=== PATIENT | female | born 1980 | race Two or more races ===

== ENCOUNTER 2016-10-27 20:17 | Emergency (ER) | payer OTHER ==
[~2016-10-27] VITALS: Ht 157.5 cm; Wt 69.5 kg
[2016-10-27 21:25] LABS: HEMOGLOBIN 12.5 g/dL (11.7-16.4)
[2016-10-27 23:16] VITALS: BP 112/70
== END 2016-10-27 23:19 | disposition home or self-care (01) ==
LOC: ED 23:05
DX: O23.12 Infections of bladder in pregnancy, second trimester (principal); Z3A.19 19 weeks gestation of pregnancy; Z90.49 Acquired absence of other specified parts of digestive tract
CPT/HCPCS: 36415; 51701; 76805; 81001; 85025; 86901; 87086; P9612

== ENCOUNTER 2016-12-17 19:43 | Observation (INO) | payer OTHER | END 2016-12-18 00:15 | disposition home or self-care (01) | LOC: LDOP 19:43 → LDIP 20:30 | PROVIDERS: ADMIT Obstetrics & Gynecology; ATTEND Obstetrics & Gynecology | DX: O44.02 Complete placenta previa NOS or without hemorrhage, second trimester (principal); O26.892 Other specified pregnancy related conditions, second trimester; M54.2 Cervicalgia; O09.522 Supervision of elderly multigravida, second trimester; Z04.1 Encounter for examination and observation following transport accident; Z3A.26 26 weeks gestation of pregnancy | CPT/HCPCS: 36415; 76815; 85025; 85460; G0378 ==

== ENCOUNTER 2017-03-06 08:04 | Inpatient (IN) | payer OTHER ==
[~2017-03-06] VITALS: Ht 152.4 cm; Wt 69.1 kg
[2017-03-06] MEDS ORDERED: OXYTOCIN 30U/ 0.9% NaCL 500ML 500 ML IV SCH (10:33)
[2017-03-06] MEDS ORDERED: LACTATED RINGERS 1,000 ML IV SCH ×2 (10:33→11:00)
[2017-03-06] MEDS ORDERED: METOCLOPRAMIDE 5 MG/ML, 2ML IV ONE (11:00)
[2017-03-06] MEDS ORDERED: ONDANSETRON 2MG/ML, 2ML IVPush ONE (11:00)
[2017-03-06] MEDS ORDERED: LACTATED RINGERS 1,000 ML IVBOLUS ONE (11:00)
[2017-03-06] MEDS ORDERED: PLEASE ENTER HEIGHT AND WEIGHT MC SCH (11:00)
[2017-03-06] MEDS ORDERED: SODIUM CITRATE/CITRIC ACID 30 ML UDC PO ONE (11:00)
[2017-03-06] MEDS ORDERED: METOCLOPRAMIDE 5 MG/ML, 2ML ONE (11:07)
[2017-03-06] MEDS ORDERED: SODIUM CITRATE/CITRIC ACID 30 ML UDC ONE (11:07)
[2017-03-06] MEDS ORDERED: OXYTOCIN 30U/ 0.9% NaCL 500ML 0 ML ONE (11:07)
[2017-03-06] MEDS ORDERED: FENTANYL PF 100 MCG/2ML IV PRN (11:30)
[2017-03-06] MEDS ORDERED: MEPERIDINE/PF 25MG/0.5ML IVPush PRN (11:30)
[2017-03-06] MEDS ORDERED: EPHEDRINE 50 MG/ML, 1ML IVPush PRN (11:30)
[2017-03-06] MEDS ORDERED: ONDANSETRON 2MG/ML, 2ML IVPush PRN (11:30)
[2017-03-06] MEDS ORDERED: OXYcodone 5 MG/5 ML ORAL.SOL UDC PO PRN (11:30)
[2017-03-06 11:38] LABS: HEMATOCRIT 37.1 % (34.6-47.8); HEMOGLOBIN 12.6 g/dL (11.7-16.4); WHITE BLOOD COUNT 5.1 x10^3/uL (3.4-10)
[2017-03-06] MEDS ORDERED: NEWBORN KIT ONE (11:53)
[2017-03-06] MEDS: OXYTOCIN 30U/ 0.9% NaCL 500ML 500 ML IV SCH ×2 (13:50→23:50)
[2017-03-06] MEDS: LACTATED RINGERS 1,000 ML IV SCH ×4 (13:50→23:50)
[2017-03-06] MEDS ORDERED: ACETAMINOPHEN 325 MG TABLET PO PRN (14:00)
[2017-03-06] MEDS ORDERED: METHYLERGONOVINE 0.2 MG/ML IM PRN (14:00)
[2017-03-06] MEDS ORDERED: SIMETHICONE 80 MG CHEW TAB PO PRN (14:00)
[2017-03-06] MEDS ORDERED: MISOPROSTOL 200 MCG TABLET PR PRN (14:00)
[2017-03-06 15:07] VITALS: BP 127/67
[2017-03-06] MEDS ORDERED: MEPERIDINE/PF 100 MG/ML ONE (15:18)
[2017-03-06 15:45] VITALS: BP 124/67
[2017-03-06] MEDS: OXYcodone/APAP 5/325MG TABLET PO PRN ×2 (18:07→22:15)
[2017-03-06] MEDS: KETOROLAC 30 MG/1 ML IV SCH (18:56)
[2017-03-06 19:30] VITALS: BP 123/83
[2017-03-06] MEDS: VALACYCLOVIR 500MG TABLET PO SCH (20:40)
[2017-03-06 20:54] LABS: HEMOGLOBIN 10.8 g/dL (11.7-16.4); WHITE BLOOD COUNT 8.1 x10^3/uL (3.4-10)
[2017-03-07] VITALS: BP 121/90
[2017-03-07] MEDS: KETOROLAC 30 MG/1 ML IV SCH ×4 (00:46→19:33)
[2017-03-07] MEDS: OXYcodone/APAP 5/325MG TABLET PO PRN ×5 (02:48→23:31)
[2017-03-07 04:00] VITALS: BP 114/75
[2017-03-07] MEDS: LACTATED RINGERS 1,000 ML IV SCH ×5 (05:50→21:50)
[2017-03-07 06:50] VITALS: BP 116/78
[2017-03-07] MEDS ORDERED: PRENATAL VIT/IRON/FA 1 EACH TABLET ONE (07:42)
[2017-03-07] MEDS: VALACYCLOVIR 500MG TABLET PO SCH ×2 (07:44→21:19)
[2017-03-07] MEDS: metFORMIN 500 MG TABLET PO SCH (07:45)
[2017-03-07] MEDS: DOCUSATE 100 MG CAPSULE PO PRN ×2 (07:45→19:33)
[2017-03-07] MEDS: PRENATAL VIT/IRON/FA 1 EACH TABLET PO SCH (07:45)
[2017-03-07] MEDS: OXYTOCIN 30U/ 0.9% NaCL 500ML 500 ML IV SCH ×2 (09:50→19:50)
[2017-03-07 11:45] VITALS: BP 125/83
[2017-03-07 19:30] VITALS: BP 122/80
[2017-03-08] MEDS: KETOROLAC 30 MG/1 ML IV SCH ×3 (01:27→13:14)
[2017-03-08] MEDS: OXYTOCIN 30U/ 0.9% NaCL 500ML 500 ML IV SCH (05:50)
[2017-03-08] MEDS: LACTATED RINGERS 1,000 ML IV SCH ×3 (05:50→13:50)
[2017-03-08] MEDS: OXYcodone/APAP 5/325MG TABLET PO PRN ×5 (06:40→23:20)
[2017-03-08] MEDS: VALACYCLOVIR 500MG TABLET PO SCH ×2 (07:47→20:14)
[2017-03-08] MEDS: PRENATAL VIT/IRON/FA 1 EACH TABLET PO SCH (07:47)
[2017-03-08] MEDS: DOCUSATE 100 MG CAPSULE PO PRN ×2 (07:47→20:14)
[2017-03-08] MEDS: metFORMIN 500 MG TABLET PO SCH (07:47)
[2017-03-08 07:50] VITALS: BP 132/89
[2017-03-08] MEDS ORDERED: KETOROLAC 30 MG/1 ML ONE (13:09)
[2017-03-08] MEDS: IBUPROFEN 600 MG TABLET PO PRN (20:14)
[2017-03-08 20:15] VITALS: BP 134/84
[2017-03-09] MEDS: IBUPROFEN 600 MG TABLET PO PRN ×2 (03:23→10:01)
[2017-03-09] MEDS: OXYcodone/APAP 5/325MG TABLET PO PRN ×3 (03:24→12:29)
[2017-03-09] MEDS ORDERED: OXYC-302 PO (05:16)
[2017-03-09] MEDS ORDERED: IBUP-1222 PO (05:19)
[2017-03-09] MEDS ORDERED: DOCU-30 PO (05:20)
[2017-03-09] MEDS: metFORMIN 500 MG TABLET PO SCH (07:49)
[2017-03-09] MEDS: PRENATAL VIT/IRON/FA 1 EACH TABLET PO SCH (07:49)
[2017-03-09] MEDS: VALACYCLOVIR 500MG TABLET PO SCH (07:49)
[2017-03-09] MEDS: DOCUSATE 100 MG CAPSULE PO PRN (07:49)
[2017-03-09 08:00] VITALS: BP 121/85
== END 2017-03-09 14:39 | disposition home or self-care (01) | DRG 765 ==
LOC: LDIP 10:09 → 2NW 15:41
PROVIDERS: ADMIT Obstetrics & Gynecology; ATTEND Obstetrics & Gynecology
PROC: 10D00Z1 Extraction of Products of Conception, Low, Open Approach (ICD-10-PCS; principal; 2017-03-06)
DX: O24.425 Gestational diabetes mellitus in childbirth, controlled by oral hypoglycemic drugs (principal); O41.03X0 Oligohydramnios, third trimester, not applicable or unspecified; O34.211 Maternal care for low transverse scar from previous cesarean delivery; E28.2 Polycystic ovarian syndrome; O34.83 Maternal care for other abnormalities of pelvic organs, third trimester; Z37.0 Single live birth; Z3A.37 37 weeks gestation of pregnancy; Z87.410 Personal history of cervical dysplasia; Z79.84 Long term (current) use of oral hypoglycemic drugs; Z90.49 Acquired absence of other specified parts of digestive tract; O09.523 Supervision of elderly multigravida, third trimester
CPT/HCPCS: 36415; 82803; 82962; 85025; 86850; 86900; J1885; J2175; J2590; J2765; J7120